=== PATIENT | male | born 1985 | race Hispanic/Latino ===

== ENCOUNTER 2016-11-29 20:13 | Emergency (ER) | payer OTHER ==
[~2016-11-29] VITALS: Ht 172.7 cm; Wt 102.1 kg
[2016-11-29 20:28] VITALS: BP 127/84
[2016-11-29] MEDS ORDERED: HYDROXYZINE HCL25 M2 PO (20:57)
[2016-11-29] MEDS ORDERED: BELSOMRA10 MG PO (20:57)
[2016-11-29] MEDS ORDERED: BENZTROPINE ME0.5 M1 PO (20:57)
[2016-11-29] MEDS ORDERED: XANAX0.5 M1 PO (20:57)
[2016-11-29] MEDS ORDERED: XYZAL5 M1 PO (20:57)
[2016-11-29] MEDS ORDERED: TRAZODONE HCL150 M1 PO (20:57)
[2016-11-29] MEDS ORDERED: RISPERDAL4 M1 PO (20:57)
[2016-11-29] MEDS ORDERED: XANAX1 M1 PO (20:57)
--- NOTE | 2016-11-29 20:59 | ED GENERAL ADULT ---
History of Present Illness General Chief Complaint: General Adult Stated Complaint: MED REFILL Source: patient, family Exam Limitations: no limitations Vital Signs & Intake/Output Vital Signs & Intake/Output Vital Signs Date Time Temp Pulse Resp B/P Pulse O2 O2 Flow FiO2 Ox Delivery Rate 11/30 2027 97.0 84 20 127/84 97 Room Air Reconcile Medications Alprazolam (Xanax) 0.5 MG TABLET 1 TAB PO QAM ANXIETY Alprazolam (Xanax) 1 MG TABLET 1 TAB PO BID ANXIETY Benztropine Mesylate 0.5 MG TABLET 1 TAB PO DAILY PSYCH Hydroxyzine HCl 25 MG TABLET 1 TAB PO TID PRN ANXIETY Levocetirizine Dihydrochloride (Xyzal) 5 MG TABLET 1 TAB PO DAILY PSYCH Risperidone (Risperdal) 4 MG TABLET 1 TAB PO QPM ANXIETY Suvorexant (Belsomra) 10 MG TABLET 1 TAB PO QPM INSOMNIA Trazodone HCl 150 MG TABLET 1 TAB PO QPM ANXIETY Triage Note: REQUEST MED REFILL Triage Nurses Notes Reviewed? yes HPI: Patient presents for medication refill. Patient is to go to [facility] but stopped going there. Patient was given a prescription for 1 month of medication. Patient is attempting to get into see to take over his care. Patient denies any suicidal or homicidal ideations. Patient denies any fever or chills. There is no nausea or vomiting. Past History Travel History Traveled to [place] past 21 day No Medical History Any Pertinent Medical History? see below for history Psychiatric: bipolar disease Surgical History Surgical History: non-contributory Psychosocial History What is your primary language Vincentian Tobacco Use: Never used ETOH Use: denies use Illicit Drug Use: heroin Family History Hx Contributory? No Review of Systems Review of Systems Constitutional: Reports: no symptoms. Respiratory: Reports: no symptoms. Cardiovascular: Reports: no symptoms. GI: Reports: no symptoms. Musculoskeletal: Reports: no symptoms. Neurological/Psychological: Reports: no symptoms. Physical Exam Physical Exam General Appearance: well developed/nourished, alert, awake Eyes: Bilateral: PERRL, EOMI. Neck: normal inspection, supple Respiratory: normal breath sounds, chest non-tender, no respiratory distress, lungs clear Cardiovascular: regular rate/rhythm, normal peripheral pulses Neurologic/Psych: no motor/sensory deficits, awake, alert, oriented x 3, normal gait, normal mood/affect Core Measures ACS in differential dx? No CVA/TIA Diagnosis: No Severe Sepsis Present: No Septic Shock Present: No Progress Differential Diagnoses I considered the following diagnoses in my evaluation of the patient: [ Medication refill] Plan of Care: Refill medications. Patient advised that he really needs follow-up. Patient is attempted to call Dr. Barney this week. Initial ED EKG: none Departure Departure Disposition: HOME OR SELF CARE Condition: Stable Clinical Impression Primary Impression: Medication refill Referrals: PATIENT HAS NO PRIMARY CARE DR (PCP/Family) Additional Instructions: follow up at [facility] this week. Departure Forms: Customer Survey General Discharge Information Prescriptions: Current Visit Scripts Alprazolam (Xanax) 1 TAB PO QAM #7 TAB Alprazolam (Xanax) 1 TAB PO BID #14 TAB Benztropine Mesylate 1 TAB PO DAILY #7 TAB Hydroxyzine HCl 1 TAB PO TID PRN ANXIETY #21 TAB Levocetirizine Dihydrochloride (Xyzal) 1 TAB PO DAILY #7 TAB Risperidone (Risperdal) 1 TAB PO QPM #7 TAB Suvorexant (Belsomra) 1 TAB PO QPM #10 TAB Trazodone HCl 1 TAB PO QPM #7 TAB Critical Care Note Critical Care Note Critical Care Time: non-applicable
== END 2016-11-29 21:11 ==
LOC: ERH 20:13
DX: Z76.0 Encounter for issue of repeat prescription (principal)
CPT/HCPCS: 99281